=== PATIENT | male | born 1965 | race Caucasian/White ===

== ENCOUNTER 2022-03-29 20:43 | Emergency (ER) | payer OTHER, SELFPAY ==
--- NOTE | ~2022-03-29 | XR_ITS ---
EXAMINATION: XR chest 1V portable Exam Date/Time: 03/29/2022 21:10 CDT HISTORY: ALLERGIC REACTION, MIDSTERNAL CP, CONGESTION, SOB Comparison: None available. RESULT: Lines, tubes, and devices: None. Lungs and pleura: Clear. Cardiomediastinal silhouette: Stable. Other: No acute osseous or upper abdominal finding. Severe degenerative change in the right shoulder . IMPRESSION: No acute cardiopulmonary process. Reviewed, dictated and finalized at location K.
[2022-03-29 20:49] VITALS: BP 156/82; PULSE 96; RESP 18; TEMP 36.2; O2SAT 96
--- NOTE | 2022-03-29 20:56 | ED.ALLEREA ---
HPI - Allergic Reaction General Chief complaint: Allergic Reaction Stated complaint: allergic reaction Time Seen by Provider: 03/29/22 20:56 Source: patient Mode of arrival: ambulatory Limitations: no limitations History of Present Illness HPI narrative: Patient is a 56-year-old male with a history of acid reflux, secondary polycythemia/erythrocytosis, presenting to the emergency department for evaluation of shortness of breath, eye swelling following ingestion of cold medication that patient thinks likely had NSAIDs in it. Patient is allergic to aspirin and NSAIDs. Patient states he does have a history of anaphylaxis to these. Patient reports that he took some cold medicine with [place] approximately 3 hours ago, and then began to notice eye swelling, chest tightness. He denies wheezing. He denies productive cough. Patient reports he has had rhinorrhea, congestion over the past 2 days. Patient reports he had a sore throat yesterday which is currently resolved. Patient denies urticaria. He denies fever or chills. Patient take Benadryl, Pepcid at home without improvement in his symptoms, thus decided to [facility]. Patient did take an at-home COVID test prior to arrival which was normal. Related Data Home Medications Medication Instructions Recorded Confirmed atorvastatin 40 mg tablet 40 mg PO DAILY 09/08/19 02/16/22 glucosamine-chondroitin 250 mg-200 2 tablet PO TID 09/08/19 02/16/22 mg tablet (Osteo Bi-Flex) krill oil 500 mg capsule 500 mg PO DAILY 09/08/19 02/16/22 coenzyme [id number] E 100 mg-100 1 cap PO DAILY 09/10/19 02/16/22 unit capsule fenofibrate nanocrystallized 145 145 mg PO DAILY 11/22/20 02/16/22 mg tablet hydrochlorothiazide 12.5 mg capsule 12.5 mg PO DAILY 11/22/20 02/16/22 levothyroxine 75 mcg tablet 50 mcg PO DAILY 05/11/21 02/16/22 mv-min-vit C 1,000 mg-elderberry 1 ea PO DAILY 09/21/21 02/16/22 50 mg-herb 35.5mg effervescent tablet (Airborne Elderberry) Allergies Allergy/AdvReac Type Severity Reaction Status Date / Time NSAIDS (Non-Steroidal Allergy Severe ANAPHYLAXIS Verified 02/16/22 14:36 Anti-Inflamma Review of Systems Review of Systems: CONSTITUTIONAL: Denies fever, chills, or sweats. EYES: Denies visual changes, redness, or discharge. ENT: Reports rhinorrhea, congestion, denies current sore throat or otalgia CARDIOVASCULAR: Reports mild pressure overlying the chest, denies radiation of the pain to the jaw, neck, back, denies palpitations or edema RESPIRATORY: Reports cough without dyspnea GASTROINTESTINAL: Denies abdominal pain, nausea, vomiting, or diarrhea. GENITOURINARY: Denies dysuria or hematuria. SKIN: Denies rash or itching. Denies urticaria. MUSCULOSKELETAL: Denies back pain, joint pain, or myalgia. NEUROLOGIC: Denies headache, numbness, or weakness. [facility] Past Medical History Medical History Cholesterol depletion Hyperlipemia Hypertension TERRA (obstructive sleep apnea) Vitamin A deficiency Surgical History Surgical History History of orthopedic surgery Family History Family History Mother Heart disease Cerebrovascular accident Acute myocardial infarction Social History Social History Smoking status: Never smoker Spiritual care concerns: No Exam Narrative: GENERAL: Awake, alert, conversant HEAD: Normocephalic, atraumatic. EYES: PERRLA and EOMI. There is mild periorbital edema bilaterally. ENT: Nares clear, no rhinorrhea or epistaxis. Mucous membranes moist. NECK: Supple. CHEST: No respiratory distress, breathing even and non labored, no wheezing, rhonchi, rales bilaterally HEART: Regular rate, sinus rhythm ABDOMEN:Non distended, non tender EXTREMITIES: Normal range of motion. No edema. SKIN: Warm, dry,
--- NOTE | 2022-03-29 21:09 | ECG_ITS ---
Measurements Intervals [place] Rate: 67 P: 36 VA: 169 QRS: 1 QRSD: 107 T: 31 QT: 377 QTc: 399 Interpretive Statements SINUS RHYTHM POSSIBLE SEPTAL MYOCARDIAL INFARCTION , OF INDETERMINATE AGE [40+ ms Q WAVE IN V1/V2] ABNORMAL ECG NO PREVIOUS ECG AVAILABLE FOR COMPARISON Electronically Signed On 03-30-2022 9:32:21 CDT by Yogesh Osorio M.D.
[2022-03-29] MEDS: EPINEPHrine HCL INJ 1 MG/ML AMPUL 0.3 MG IM (21:20)
[2022-03-29] MEDS: FAMOTIDINE 20 MG/2 ML VIAL IV PUSH (21:21)
[2022-03-29] MEDS: SODIUM CHLORIDE 0.9% IV 500 ML 999 ML IV CONT (21:21)
[2022-03-29] MEDS: diphenhydrAMINE HCl INJ 50 MG/ML VIAL 25 MG IV PUSH (21:21)
[2022-03-29 23:09] LABS: Basophils Percent Auto 0.5 % (0.2-1.2); Eosinophils Absolute Auto 0.2 K/mm3 (0-0.3); Eosinophils Percent Auto 3.5 % (0-4.4); Hematocrit 42.4 % (42.0-52.0); Hemoglobin 13.5 g/dL (14.0-18.0); Immature Granulocyte Absolute 0.02 K/mm3 (0.00-0.031); Immature Granulocyte Percent A 0.3 % (0-0.5); Lymphocytes Absolute Auto 1.22 K/mm3 (0.9-3.2); Lymphocytes Percent Auto 19.3 % (18.3-44.2); Mean Corpuscular HGB Conc 31.8 g/dl (32-36); Mean Corpuscular Hemoglobin 29.8 pg (26-34); Mean Corpuscular Volume 93.6 fl (80-100); Mean Platelet Volume 11.7 fl (7.4-10.4); Monocytes Absolute Auto 0.5 K/mm3 (0.1-0.6); Monocytes Percent Auto 7.6 % (2.6-8.5); Neutrophils Absolute Auto 4.4 K/mm3 (1.3-6.7); Neutrophils Percent Auto 68.8 % (45.5-73.1); Platelet Count Result 153 k/mm3 (150-375); Red Blood Count 4.53 M/mm3 (4.6-6.20); Red Cell Distribution Width 14.4 % (11.5-14.5); White Blood Count 6.3 K/mm3 (4.5-10.0)
[2022-03-29 23:20] LABS: Anion Gap 8 mmol/L (8-16); Blood Urea Nitrogen 18 mg/dL (9-20); Calcium 9.2 mg/dL (8.4-10.2); Carbon Dioxide 21 mmol/L (22-30); Chloride 111 mmol/L (98-107); Estimated CRCL calculation 86 ml/min; Estimated Glomerular Filt Rate > 60; Glucose 108 mg/dL (65-110); INR 1.1; Partial Thromboplastin Time 33.1 SECONDS (22.3-36.8); Potassium 3.7 mmol/L (3.4-5.0); Prothrombin Time 13.9 Seconds (11.1-14.7); Sodium 140 mmol/L (137-145)
[2022-03-29 23:31] LABS: Troponin I < 0.012 ng/mL (0.000-0.034)
[2022-03-29 23:45] LABS: Influenza A QL RT-PCR Negative (Negative); Influenza B QL RT-PCR Negative (Negative); SARS-CoV-2 RNA PCR Negative
[2022-03-30 00:28] VITALS: PULSE 80; RESP 18; O2SAT 97
== END 2022-03-30 00:30 | disposition home or self-care (01) ==
PROVIDERS: Emergency Provider Emergency Medicine; PCP Internal Medicine
DX: T78.40XA Allergy, unspecified, initial encounter (principal); Z20.822 Contact with and (suspected) exposure to COVID-19; E78.5 Hyperlipidemia, unspecified; I10 Essential (primary) hypertension; G47.33 Obstructive sleep apnea (adult) (pediatric); E55.9 Vitamin D deficiency, unspecified; D75.1 Secondary polycythemia
CPT/HCPCS: 36415; 71045; 80048; 84484; 85025; 85610; 85730; 87502; 93005; 96361; 96372; 96374; 96375; 99284; C9803; J0171; J1100; J1200; J7040; U0003; U0005

== ENCOUNTER 2023-03-28 08:57 | Outpatient (CLI) | payer OTHER, SELFPAY ==
[2023-03-28 09:13] LABS: Basophils Absolute Auto 0.1 K/mm3 (0.0-0.1); Basophils Percent Auto 1.3 % (0.2-1.2); Eosinophils Absolute Auto 0.6 K/mm3 (0-0.3); Eosinophils Percent Auto 8.6 % (0-4.4); Hematocrit 51.7 % (42.0-52.0); Hemoglobin 16.8 g/dL (14.0-18.0); Immature Granulocyte Absolute 0.01 K/mm3 (0.00-0.031); Immature Granulocyte Percent A 0.1 % (0-0.5); Lymphocytes Percent Auto 32.1 % (18.3-44.2); Mean Corpuscular HGB Conc 32.5 g/dl (32-36); Mean Corpuscular Hemoglobin 29.3 pg (26-34); Mean Corpuscular Volume 90.1 fl (80-100); Mean Platelet Volume 11.4 fl (7.4-10.4); Monocytes Absolute Auto 0.6 K/mm3 (0.1-0.6); Neutrophils Absolute Auto 3.4 K/mm3 (1.3-6.7); Neutrophils Percent Auto 49.9 % (45.5-73.1); Platelet Count Result 186 k/mm3 (150-375); Red Blood Count 5.74 M/mm3 (4.6-6.20); Red Cell Distribution Width 14.2 % (11.5-14.5); White Blood Count 6.9 K/mm3 (4.5-10.0)
== END 2023-03-28 08:58 | disposition home or self-care (01) ==
LOC: ANHLAB 09:00
PROVIDERS: PCP Internal Medicine; Visit Provider Internal Medicine Hematology & Oncology
DX: D75.1 Secondary polycythemia (principal)
CPT/HCPCS: 36415; 85025

== ENCOUNTER 2024-11-28 11:01 | Outpatient (CLI) | payer OTHER, SELFPAY ==
[2024-11-28 11:54] LABS: Blood Urea Nitrogen 14 mg/dL (8-26); Carbon Dioxide 21 mmol/L (22-30); Chloride 106 mmol/L (98-109); Estimated Glomerular Filt Rate > 60; Glucose 92 mg/dL (70-105); Ionized Calcium (POC) 1.22 mmol/L (1.11-1.31); Potassium 3.5 mmol/L (3.5-4.9); Sodium 141 mmol/L (138-146)
== END 2024-11-28 11:02 | disposition home or self-care (01) ==
LOC: ANHLAB 11:04
PROVIDERS: PCP Internal Medicine
DX: I25.10 Atherosclerotic heart disease of native coronary artery without angina pectoris (principal)
CPT/HCPCS: 36415; 80047